=== PATIENT | male | born 2000 | race Caucasian/White ===

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

== ENCOUNTER 2018-10-11 22:55 | Emergency (ER) | payer BC ==
[2018-10-11] MEDS ORDERED: Ibuprofen 800 MG TAB ONE (23:19)
== END 2018-10-11 23:10 | disposition home or self-care (01) ==
LOC: BURERS 22:55
DX: J06.9 Acute upper respiratory infection, unspecified (principal)
CPT/HCPCS: 99281